=== PATIENT | male | born 1995 | race Caucasian/White ===

== ENCOUNTER 2016-09-27 15:12 | Emergency (ER) | payer MEDICAID ==
[~2016-09-27] VITALS: Ht 165.1 cm; Wt 107.2 kg
[2016-09-27 18:22] LABS: BASOPHIL % 0.4 % (0-2); PLATELET COUNT 218 x10^3mcL (130-400)
[2016-09-27 18:31] LABS: CALCIUM 9.3 mg/dL (8.5-10.1); CARBON DIOXIDE 30.3 mmol/L (21-32); CHLORIDE SERUM 103 mmol/L (98-107); CREATININE SERUM 0.8 mg/dL (0.7-1.3); GFR1 > 60 mL/min; GLUCOSE SERUM 92 mg/dL (74-106); POTASSIUM SERUM 4.1 mmol/L (3.5-5.1); SODIUM SERUM 142 mmol/L (136-145)
[2016-09-27 18:44] LABS: ALBUMIN 4.3 g/dL (3.4-5.0); ALKALINE PHOSPHATASE 85 U/L (46-116); ALT/SGPT 50 U/L (16-63); AST/SGOT 27 U/L (15-37); BILIRUBIN TOTAL 0.3 mg/dL (0.20-1.00)
[2016-09-27 19:40] VITALS: BP 139/79
== END 2016-09-27 19:41 | disposition home or self-care (01) ==
LOC: ED 15:12
PROVIDERS: Specialist
DX: R07.9 Chest pain, unspecified (principal)
CPT/HCPCS: 83880; 85378